=== PATIENT | male | born 1970 | race Caucasian/White ===

== ENCOUNTER 2023-06-29 13:12 | Emergency (ER) | payer OTHER ==
[2023-06-29] MEDS ORDERED: HYDROcodone/Acetaminophen 10/325 mg Tablet ONE (14:21)
[2023-06-29] MEDS ORDERED: Boostrix 0.5 ML (Tdap) VIAL (>/=7 yrs of age) ONE (14:22)
[2023-06-29] MEDS ORDERED: Lidocaine 1% (PF) 30 ML VIAL ONE (15:51)
[2023-06-29] MEDS ORDERED: Doxycycline 100 MG CAP ONE (17:19)
== END 2023-06-29 17:40 | disposition home or self-care (01) ==
LOC: ERS 13:12
DX: S61.412A Laceration without foreign body of left hand, initial encounter (principal); W27.0XXA Contact with workbench tool, initial encounter; Z23 Encounter for immunization
CPT/HCPCS: 12004; 90471; 90715; J2001

== ENCOUNTER 2023-07-23 12:00 | Emergency (ER) | payer OTHER | END 2023-07-23 14:06 | disposition home or self-care (01) | LOC: ERS 12:00 | DX: S61.012D Laceration without foreign body of left thumb without damage to nail, subsequent encounter (principal); E11.9 Type 2 diabetes mellitus without complications; I10 Essential (primary) hypertension; F17.200 Nicotine dependence, unspecified, uncomplicated; X58.XXXD Exposure to other specified factors, subsequent encounter ==